=== PATIENT | female | born 1985 | race Caucasian/White ===

== ENCOUNTER → 2017-05-28 | Outpatient (REF) ==
--- NOTE | 2017-05-28 16:50 | REP ---
Clinical: Pain and disability. Technique: AP, lateral, and coned-down views of the lumbosacral spine. Findings: Alignment and lordosis maintained. No significant degenerative changes are appreciated. No acute fracture / compression injury or subluxation. Impression: Normal age appropriate lumbosacral spine radiographs. Signed by Renaldo Donovan MD 05/28/2017 04:42 P
== END ==
LOC: M SMT 15:35
PROVIDERS: ATTEND Internal Medicine
DX: Z02.9 Encounter for administrative examinations, unspecified (principal)